=== PATIENT | male | born 1985 | race African-American/Black ===

== ENCOUNTER → 2021-07-04 | Outpatient (CLI) | payer OTHER ==
[~2021-07-04] MED LIST: ALDACTONE100 MG PO; BACTRIM DS TAB1 EACH PO; ESTRACE2 MG PO; KEFLEX500 MG PO; PROSCAR 5 MG TAB5 MG PO
[2021-07-04 13:45] LABS: BUN/CREATININE RATIO 15 (0-10)
[2021-07-05 08:17] LABS: TESTOSTERONE, SERUM 13 ng/dL (264-916)
== END ==
LOC: LAB 12:40 → EDSEX 12:40
DX: Q56.4 Indeterminate sex, unspecified (principal)
CPT/HCPCS: 36415; 80053; 80061; 82670; 84403